=== PATIENT | male | born 1970 | race Caucasian/White ===

== ENCOUNTER 2018-09-30 02:50 | Emergency (ER) | payer MEDICAID, OTHER ==
[~2018-09-30] VITALS: Wt 54.7 kg
[2018-09-30] MEDS ORDERED: ASPIRIN 81 MG TAB ONE ×2 (04:02→04:03)
[2018-09-30] MEDS ORDERED: HEPARIN 1000 UNITS/ML 10 ML INJ ONE (04:03)
--- NOTE | 2018-09-30 04:05 | ERD ---
ER Documentation Chief Complaint Chief Complaint UPPER BILAT CHEST WALL PAIN AND BACK PAIN X'S 4 DAYS HPI The patient is a 48-year-old male, presenting to the ER because of bilateral chest wall pain and back pain for the last 4 days intermittently, worse tonight, 9/10, denies similar symptoms previously, denies chest pain with vomi ting/exertion/diaphoresis, dyspnea, abdominal pain, vomiting, dysuria, diarrhea. He does not smoke nor drink Past medical history: Diabetes mellitus Past surgical history: Right eye The patient was initially seen in the ED 2. When the dip dyer show me the EKG at 3:55 AM, I immediately activated code STEMI. ROS All systems reviewed and are negative except as per history of present illness. Allergies Allergies: Coded Allergies: No Known Allergy (Unverified , 09/30/18) PMhx/Soc History of Surgery: No Anesthesia Reaction: No Hx Neurological Disorder: No Hx Respiratory Disorders: No Hx Cardiac Disorders: No Hx Psychiatric Problems: No Hx Miscellaneous Medical Probl: Yes (DM) Hx Alcohol Use: No Hx Substance Use: No Hx Tobacco Use: No Smoking Status: Never smoker Physical Exam Vitals Vital Signs Date Temp Pulse Resp B/P (MAP) Pulse Ox O2 O2 Flow FiO2 Time Delivery Rate 09/30/18 97.5 87 14 125/107 100 Room Air 04:13 (113) 09/30/18 97.3 60 18 131/88 100 02:57 (102) Physical Exam Const: No acute distress. Head: Atraumatic. Eyes: Normal Conjunctiva. ENT: Normal External Ears, Nose and Mouth. Neck: Full range of motion. No meningismus. Resp: Clear to auscultation bilaterally. Cardio: Regular rate and rhythm. Abd: Soft, non distended, normal bowel sounds, non tender. Skin: No petechiae or rashes. Back: No midline or flank tenderness. Ext: No cyanosis, or edema. Neur: Awake and alert. No focal deficit Psych: Normal Mood and Affect. Result Diagram: 09/30/18 0401 Results 24 hrs Laboratory Tests Test 09/30/18 04:01 White Blood Count 14.7 10^3/ul Red Blood Count 4.91 10^6/ul Hemoglobin 15.3 g/dl Hematocrit 45.8 % Mean Corpuscular Volume 93.3 fl Mean Corpuscular Hemoglobin 31.2 pg Mean Corpuscular Hemoglobin Concent 33.4 g/dl Red Cell Distribution Width 12.6 % Platelet Count 244 10^3/UL Mean Platelet Volume 10.1 fl Immature Granulocytes % 0.400 % Neutrophils % 72.8 % Lymphocytes % 19.8 % Monocytes % 5.7 % Eosinophils % 1.1 % Basophils % 0.2 % Nucleated Red Blood Cells % 0.0 /100WBC Immature Granulocytes # 0.060 10^3/ul Neutrophils # 10.7 10^3/ul Lymphocytes # 2.9 10^3/ul Monocytes # 0.8 10^3/ul Eosinophils # 0.2 10^3/ul Basophils # 0.0 10^3/ul Nucleated Red Blood Cells # 0.0 10^3/ul Current Medications Medications Dose Sig/Funmilayo Start Time Status Last (Trade) Ordered Route PRN Stop Time Admin Dose Reason Admin Aspirin 324 mg ONCE ONCE 09/30/18 09/30/18 (Aspirin) PO 04:30 04:07 09/30/18 04:31 Sodium 1,000 ml @ Q1H ONCE 09/30/18 09/30/18 Chloride 1,000 mls/hr IV 04:30 04:07 09/30/18 05:29 Heparin 4,000 unit ONCE ONCE 09/30/18 09/30/18 Sodium IV 04:30 04:07 (Porcine) 09/30/18 04:31 (Heparin (1000 Units/ml)) Procedures/MDM EKG: At 3:53 AM read by emergency physician Rate/Rhythm: Normal Sinus Rhythm 64 beats/min QRS, ST, T-waves: Acute ST elevation in inferior leads with reciprocal change in lateral lead Impression: Acute inferior [place] All labs pending MEDICAL MAKING DECISION: The patient is a 48-year-old male, presenting with acute STEMI The patient was then moved from the ED to the ED 1, IV established. He was immediately treated with 4 ASA 81 mg chew and swallow, 1 liter normal saline, heparin 4000 units intravenously (he only weighs 55kg) due to acute STEMI with good response. His chest pain is better. He was not given NTG because of concern of NTG-induced hypotension due to acute inferior [place]. Consultation: I discussed the patient with [facility] emergency physician Dr Zayas at 4 am, who was made aware of the lab, the treatment, the patient condition and he accepted the patient Critical Care: Time: 35 minutes excluding all billable procedures. Treatments/Evaluations: Close monitoring and treatment of unstable vital signs, cardiorespiratory, and neurologic status, while maintaining tight balance of fluid, respiratory, and cardiac interventions. Departure Diagnosis: Primary Impression: Acute inferior myocardial infarction Condition: Critical Comments The patient was transferred to [facility] via ambulance at 4:18 am DYLAN SHEA MD Sep 30, 2018 04:05
[2018-09-30 04:13] VITALS: BP 125/107; PULSE 87; RESP 14
[2018-09-30] MEDS ORDERED: SOD CHLORIDE 0.9% 1,000 ML IV ONE (04:30)
[2018-09-30] MEDS ORDERED: HEPARIN 1000 UNITS/ML 10 ML INJ IV ONE (04:30)
[2018-09-30] MEDS ORDERED: ASPIRIN 81 MG TAB PO ONE (04:30)
== END 2018-09-30 04:18 | disposition short-term general hospital (02) ==
LOC: E/R 02:50
DX: I21.19 ST elevation (STEMI) myocardial infarction involving other coronary artery of inferior wall (principal); E11.9 Type 2 diabetes mellitus without complications
CPT/HCPCS: 36415; 71045; 80053; 83690; 84484; 85025; 93005; 96374; J7030; Z7502; J1644